=== PATIENT | male | born 1985 | race Two or more races ===

== ENCOUNTER 2017-11-12 18:26 | Emergency (ER) | payer OTHER ==
[~2017-11-12] VITALS: Ht 182.9 cm; Wt 91.6 kg
[2017-11-12 18:53] VITALS: BP 138/76
[2017-11-12] MEDS ORDERED: LIDOCAINE /MPF 1% VIAL 5 ML VIAL ONE (19:54)
[2017-11-12] MEDS ORDERED: CEFTRIAXONE 1 G VIAL IM ONE (20:00)
--- NOTE | 2017-11-12 20:24 | NUR ---
PT STABLE, NAD NOTED & AMB W/ STEADY GAIT UPON LEAVING ED
== END 2017-11-12 20:26 | disposition home or self-care (01) ==
LOC: ER 18:30
DX: L03.116 Cellulitis of left lower limb (principal)
CPT/HCPCS: A4606; J0696; J3490; Z7610

== ENCOUNTER 2018-07-24 13:34 | Emergency (ER) | payer OTHER ==
[~2018-07-24] VITALS: Ht 182.9 cm; Wt 90.7 kg
[2018-07-24 13:40] VITALS: BP 124/86
[2018-07-24] MEDS ORDERED: BENZOIN COMPOUND TINCT 60 ML BOTTLE ONE (14:07)
== END 2018-07-24 14:40 | disposition home or self-care (01) ==
LOC: ER 13:37
DX: S51.811D Laceration without foreign body of right forearm, subsequent encounter (principal); X58.XXXD Exposure to other specified factors, subsequent encounter
CPT/HCPCS: 99283; A6402; A6403

== ENCOUNTER 2019-02-24 21:50 | Emergency (ER) | payer OTHER ==
[~2019-02-24] VITALS: Ht 182.9 cm; Wt 90.7 kg
--- NOTE | 2019-02-24 22:15 | NUR ---
TO ER BED 10 AMBULATORY C/O R FOREARM REDNESS AND SWELLING X4 DAYS. PT AAOX4 NO ACUTE DISTRESS NOTED, RESP EVEN AND UNLABORED. PENDING ER MD HALL.
[2019-02-24] MEDS ORDERED: VANCOMYCIN 1 GM in IV D5W 250 ML IV ONE (22:30)
--- NOTE | 2019-02-24 22:40 | NUR ---
STARTED SL 18G TO [facility], BLOOD DRAWN AND SENT TO LAB.
[2019-02-24] MEDS ORDERED: VANCOMYCIN 1 GM VIAL ONE (22:47)
[2019-02-24 22:52] LABS: BASOPHILS % (AUTO) 0.4 % (0.0-2.0); EOSINOPHILS % (AUTO) 2.3 % (0.0-6.0); HEMATOCRIT 44 % (39-51); LYMPHOCYTES % (AUTO) 32.5 % (20.0-44.0); MEAN CORPUSCULAR HGB CONC 34 g/dl (31.0-36.0); MEAN CORPUSCULAR VOLUME 91 fL (80-96); MONOCYTES # (AUTO) 0.8 /CMM (0.1-1.30); MONOCYTES % (AUTO) 8.9 % (2.0-12.0); NEUTROPHILS # (AUTO) 5.1 /CMM (1.8-8.9); NEUTROPHILS % (AUTO) 55.9 % (43.0-81.0); PLATELET COUNT (AUTO) 206 /CMM (150-450); RED BLOOD CELL COUNT(AUTO) 4.85 MIL/uL (4.5-6.0); WHITE BLOOD COUNT (AUTO) 9.1 K/uL (4.3-11.0)
[2019-02-24 22:58] LABS: CREATININE 1.1 mg/dL (0.6-1.3); POTASSIUM 3.7 mmol/L (3.5-5.1)
--- NOTE | 2019-02-25 00:13 | NUR ---
IV removed. Catheter intact and site benign. Pressure and 4x4 applied to site. No bleeding noted. Patient discharged to home in stable condition. Written and verbal after care instructions given. Patient verbalizes understanding of instruction. ambulatory with a steady gait noted. pt aaox4 no acute distress noted, resp even and unlabored.
[2019-02-25 00:17] VITALS: BP 127/73
== END 2019-02-25 00:18 | disposition home or self-care (01) ==
LOC: ER 21:55
DX: L03.113 Cellulitis of right upper limb (principal)
CPT/HCPCS: 36415; 80048; 83605; 85025; 85730; 87040 ×2; 96365; 99283; J3370